=== PATIENT | female | born 1980 | race Caucasian/White ===

== ENCOUNTER 2017-05-04 14:10 | Emergency (ER) | payer MEDICAID ==
[~2017-05-04] VITALS: Ht 165.1 cm; Wt 68.0 kg
[2017-05-04 14:14] VITALS: BP 107/59
--- NOTE | 2017-05-04 14:14 | NUR ---
BIB SELF C/O DYSUIRA, AND URGENCY X 3 DAYS, DENIES HEMATURIA, NAD NOTED, VSS, URINE SAMPLE SENT TO LAB, WAITING FOR MD LUZ.
[2017-05-04 14:47] LABS: APPEARANCE,URINE CLEAR (CLEAR); BILIRUBIN,URINE NEGATIVE (NEGATIVE); BLOOD, URINE 1+ Ery/uL (NEGATIVE); COLOR,URINE YELLOW (YELLOW); KETONES,URINE NEGATIVE (NEGATIVE); LEUKOCYTE ESTERASE ,URINE 1+ (NEGATIVE); NITRITE, URINE NEGATIVE (NEGATIVE); PROTEIN,URINE 1+ mg/dl (NEGATIVE); UGLUCOSE NEGATIVE (NEGATIVE); UROBILINOGEN,URINE 0.2 EU/dL (0.2)
[2017-05-04 15:04] LABS: BACTERIA,URINE Moderate /HPF (None Seen); SQUAMOUS EPITHELIAL CELL,UR Few /HPF (None Seen); WBC,URINE 21-50 /HPF (0-3)
[2017-05-04] MEDS ORDERED: PHENAZOPYRIDINE HCL 200 MG TABLET ONE (15:29)
[2017-05-04] MEDS ORDERED: ACETAMINOPHEN ES 500 MG TABLET ONE (15:29)
[2017-05-04] MEDS ORDERED: PHENAZOPYRIDINE HCL 200 MG TABLET PO ONE (15:30)
[2017-05-04] MEDS ORDERED: ACETAMINOPHEN ES 500 MG TABLET PO ONE (15:30)
== END 2017-05-04 15:36 | disposition home or self-care (01) ==
LOC: ER 14:12
DX: N39.0 Urinary tract infection, site not specified (principal); Z98.890 Other specified postprocedural states
CPT/HCPCS: 81001; 84703; 87077; 87086; 87186; 99284; A4606; Z7610; 81000-TC

== ENCOUNTER 2020-03-29 18:03 | Emergency (ER) | payer MEDICAID ==
[~2020-03-29] VITALS: Ht 165.1 cm; Wt 72.6 kg
--- NOTE | 2020-03-29 18:23 | NUR ---
LEFT SIDED CHEST PAIN RADIATING TO L ARM WITH SOB SINCE YESTERDAY. PATIENT A/OX4, BREATHING EVEN AND UNLABORED, NO SOB NOTED. NEEDS ATTENDED. KEPT COMFORTABLE.
[2020-03-29 18:53] LABS: BASOPHILS % (AUTO) 0.8 % (0.0-2.0); EOSINOPHILS % (AUTO) 2.5 % (0.0-6.0); HEMATOCRIT 40 % (33-45); HEMOGLOBIN 13.8 g/dL (11.5-14.8); LYMPHOCYTES # (AUTO) 2.1 /CMM (0.8-4.8); LYMPHOCYTES % (AUTO) 34.9 % (20.0-44.0); MEAN CORPUSCULAR HGB CONC 34 g/dl (31.0-36.0); MEAN CORPUSCULAR VOLUME 87 fL (82-100); MONOCYTES # (AUTO) 0.4 /CMM (0.1-1.30); MONOCYTES % (AUTO) 6.1 % (2.0-12.0); NEUTROPHILS # (AUTO) 3.4 /CMM (1.8-8.9); NEUTROPHILS % (AUTO) 55.7 % (43.0-81.0); PLATELET COUNT (AUTO) 192 /CMM (150-450); RED BLOOD CELL COUNT(AUTO) 4.64 MIL/uL (4.0-5.2); WHITE BLOOD COUNT (AUTO) 6.2 K/uL (4.3-11.0)
[2020-03-29 19:07] LABS: CALCIUM, SERUM 8.5 mg/dL (8.5-10.1); CARBON DIOXIDE 25 mmol/L (21-32); CHLORIDE 104 mmol/L (98-107); CREATININE 0.6 mg/dL (0.6-1.3); GLUCOSE 82 mg/dL (74-106); POTASSIUM 3.6 mmol/L (3.5-5.1); SODIUM SERUM 140 mmol/L (136-145); UREA NITROGEN, BLOOD 17 mg/dL (7-18)
--- NOTE | 2020-03-29 19:09 | NUR ---
PT AAOX4, VSS, RESPIRATIONS EVEN AND UNLABORED ON RA W/ NAD NOTED. PT CONNECTED TO THE MONITOR AND POX.
[2020-03-29 19:13] LABS: ALANINE AMINOTRANSFERASE 16 U/L (12-78); ALBUMIN 3.7 g/dL (3.4-5.0); ALKALINE PHOSPHATASE 40 U/L (46-116); ASPARTATE AMINOTRANSFERASE 12 U/L (15-37); BILIRUBIN,DIRECT 0.2 mg/dL (0.0-0.2); BILIRUBIN,TOTAL 0.6 mg/dL (0.2-1.0)
[2020-03-29 21:29] VITALS: BP 101/74
--- NOTE | 2020-03-29 21:29 | NUR ---
Patient discharged to home in stable condition. Written and verbal after care instructions given. Patient verbalizes understanding of instruction.pt. ambulatory with a steady gait
== END 2020-03-29 21:30 | disposition home or self-care (01) ==
LOC: ER 18:15
DX: R07.89 Other chest pain (principal); R06.02 Shortness of breath; Z98.890 Other specified postprocedural states
CPT/HCPCS: 36415; 71045-TC; 80048-TC; 80076-TC; 83690-TC; 84484-TC; 85025-TC

== ENCOUNTER 2022-08-05 16:57 | Emergency (ER) | payer MEDICAID ==
[~2022-08-05] VITALS: Ht 165.1 cm; Wt 81.6 kg
[2022-08-05 17:23] VITALS: BP 126/81
--- NOTE | 2022-08-05 17:23 | NUR ---
BIBS C/O BILATERAL BREAST TENDERNESS/PAIN SINCE ISABELLE.
--- NOTE | 2022-08-05 17:41 | NUR ---
DR CLAYTON AT BEDSIDE FOR EVAL WITH FEMALE RN AT BEDSIDE
--- NOTE | 2022-08-05 17:42 | NUR ---
ULTRASOUND AT BEDSIDE
--- NOTE | 2022-08-05 18:28 | NUR ---
Patient discharged to home in stable condition. Written and verbal after care instructions given. Patient verbalizes understanding of instruction.
== END 2022-08-05 18:29 | disposition home or self-care (01) ==
LOC: ER 17:00
DX: N64.4 Mastodynia (principal); Z98.890 Other specified postprocedural states
CPT/HCPCS: 76641-TC